=== PATIENT | female | born 1940 | race Caucasian/White ===

== ENCOUNTER 2021-09-01 13:11 | Day surgery (SDC) | payer MEDICARE, OTHER ==
[~2021-09-01 13:11] MED LIST: BUPIVACAINE 0.5% VIAL IJ ONE; CEFAZOLIN 2 GM-D5W BAG** 2 GM/50 ML ML IV ONE; CEFAZOLIN 2 GM-D5W BAG** 2 GM/50 ML ML IV SCH; Lactated Ringers 1,000 ML IV ONE; Lactated Ringers 1,000 ML IV SCH; XYLOCAINE 1% HCL 20 ML MDV ONE
[2021-09-01] MEDS ORDERED: Levaquin 250MG/50ML D5W 250 MG/50 ML BAG IV ONE (13:30)
[2021-09-01] MEDS ORDERED: PHENYLEPHRINE HCL 10 MG in Dextrose 5%/Water IV Soln. 250 ML 250 ML IV PRN (14:37)
[2021-09-01] MEDS ORDERED: Zofran 4 MG/2 ML VIAL ONE (15:36)
[2021-09-01] MEDS ORDERED: Quelicin Fliptop 200 MG/10 ML ONE (15:36)
[2021-09-01] MEDS ORDERED: Amidate 20 MG/10 ML IV ONE (15:36)
[2021-09-01] MEDS ORDERED: Xylocaine-Mpf 2% 5 Ml Vial ONE (15:36)
[2021-09-01] MEDS ORDERED: PHENYLEPHRINE HCL ONE (15:36)
[2021-09-01] MEDS ORDERED: SUBLIMAZE 100 MCG/2 ML ONE ×2 (15:37→18:09)
[2021-09-01] MEDS ORDERED: Pre-Attached Lta Kit TP ONE (15:41)
[2021-09-01] MEDS ORDERED: OFIRMEV 100 ML IV ONE (15:41)
[2021-09-01] MEDS ORDERED: DEXMEDETOMIDINE 80 MCG/20ML-NS IV ONE (17:50)
[2021-09-01 18:46] VITALS: BP 143/67; PULSE 80; O2SAT 98
--- NOTE | 2021-09-02 09:00 | XRAY ---
Indication: Right foot 1st MTP arthrodesis, 2nd metatarsal Keith osteotomy, and hammertoe correction 2nd toe. Intraoperative fluoroscopy provided for 1 minute 6 seconds. 18 digital spot images submitted for interpretation demonstrates fusion 1st MTP with intact plate/screws, 2nd metatarsal Keith osteotomy with intact screw, and 2nd toe fusion with intact screw traversing phalanx. Correlate with intraoperative findings/report.
--- NOTE | 2021-09-02 10:54 | OP ---
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 3) Pain right foot. 4) Hammer toe second digit right foot. 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 3) Pain right foot. 4) Hammer toe second digit right foot. PROCEDURES: 1) First metaphalangeal joint arthrodesis right foot. 2) Hammer toe correction right foot. 3) Keith osteotomy right foot. SURGEON: Miles Cain DPM. CHAIR CANER: None. ANESTHESIA: General plus a postoperative local block. See injectables for details. HEMOSTASIS: Ankle tourniquet set to 250 mm of Mercury for 60 minutes total tourniquet time. ESTIMATED BLOOD LOSS: Less than 10 cc. MATERIALS: A.L.P.S. first metaphalangeal joint plate right with a 3.4 x 34 MAX variable compression screw. Material Keith osteotomy 2.0 x 12 mm partially threaded cannulated screw and for proximal interphalangeal arthrodesis 2.5 x 30 MAX VPC screw. 3-0 Nylon, 4-0 Monocryl. INJECTABLES: 20 cc of 1:1 mixture of 1% lidocaine plain and 0.5% bupivacaine plain injected in a Tapia block and second ray block to the right foot postoperatively. INDICATIONS FOR PROCEDURE: Tamela is a very pleasant 81-year-old female who presented to my office for complaints of pain to the right foot secondary to her thickened lesion between her big toe and second toe, this is secondary to her bunion deformity as well as a significant hammer toe. The patient had multiple places of pain to the second digit where there was a visible contracture at the metatarsophalangeal joint that was dorsiflexory and plantarflexory at the proximal at the proximal interphalangeal joint and particular amount of pain and irritation at the distal tip of the toe as well as the dorsal aspect of the proximal interphalangeal joint. The patient had failed conservative management with use of wider toe box, splinting, bracing and mediation with replacing shoe gear. She understands all risks, benefits and complications of the surgical intervention at this time including but not limited to nonwound healing, delayed wound healing, nonbone healing and delayed bone healing, possibility of infection, hematoma and seroma is a possibility with these kinds of cases. She understands all of these risks and wishes to proceed with surgical intervention at this time. No guarantees were provided as to the outcome and plenty of time was allowed for the patients questions to be answered to her apparent satisfaction. It is with that we decided to proceed. DESCRIPTION OF PROCEDURE AND FINDINGS: The patient was brought into the OR and placed on the OR table in supine position. At this time adequate general anesthesia was administered and the patient was sedated. At this time, the patient was then prepped and draped in the typical sterile fashion. A well-padded ankle tourniquet was applied prior to the prep and the right lower extremity was lowered onto the surgical field. At this time, a linear incision was made approximately 4 cm in length along the medial aspect of the extensor tendon down the first metatarsophalangeal joint. The tendon was dissected out and retracted out of the way. This was deepened down to the level of the capsule where a capsulotomy was performed. Medial and lateral J-strokes were then performed and the cartilage was then inspected. At this time, significant amount of osteochondral degeneration of the first metatarsophalangeal joint was identified. Following this, a K-wire was retrograded down the central aspect of the first metaphalangeal joint of the right foot and a cup and conical reamer were utilized to denude the cartilage down to the subchondral plate to both sides. A copious amount of sterile saline was utilized to flush this site of any remaining cartilage. A 2.0 mm drill was then used to fenestrate the broader surfaces for vascular angle. At this time the position was identified under fluoroscopic guidance and a dorsal first metatarsophalangeal plate A.L.P.S. Joselyn plate was applied to the dorsal aspect of the foot and a temporary fixation was achieved, this was checked under fluoroscopy and deemed to be in adequate position. A combination of locking and nonlocking screws were utilized to fixate the plate over the dorsal aspect of the first metaphalangeal joint with the position correcting for the transverse plane and the frontal plane deviation of the digit. At this time a MAX VPC screw 34 mm in length was introduced from a distal medial to a proximal orientation gaining compression through the plate through multiple sites appeared to be eccentric and the interfrag screw, this was checked under fluoroscopic guidance and deemed to be in adequate position. At this time, the incision was made over the dorsal aspect of the second metatarsal, this incision was deepened identifying the extensor tendon which a Z-lengthening tenoplasty was performed this was then deepened down to the second metatarsophalangeal joint. The second metatarsal was identified and a capsulotomy was performed. A Keith was performed with the blade of the sagittal saw parallel to the weight bearing surface once the complete osteotomy was made, temporary fixation was made and posterior pressure was applied to the digit in order to displace the metatarsal head posteriorly. At this time a 12 mm partially threaded headed cannulated screw was introduced from dorsal to plantar checked under fluoroscopic guidance and deemed to be adequate. The dorsal head of the first metatarsal was rongeured off and the tendon was then repaired. At this time, the incision was deepened along the proximal interphalangeal joint where J-stroke was performed here as well exposing the proximal interphalangeal joint head. Following this, a sagittal saw was utilized to set the head of the proximal phalangeal head as well as base of the middle phalanx. At this time, copious amounts of sterile saline were utilized to flush out the site. A K-wire was retrograded down the distal tip of the second proximal interphalangeal joint, the middle phalanx, distal phalanx and then retrograded through the proximal phalanx. At this time, a 30 x 2.5 mm variable compression screw was introduced from the distal tip and was checked under fluoroscopy and deemed to be adequate. At this time all incision sites were flushed with copious amounts of sterile saline. The incisions were coapted utilizing a combination of 4-0 Monocryl in deep buried fashion and 3-0 Nylon in horizontal mattress-type fashion. The patient was then reversed from anesthesia. Tourniquet was let down at a total tourniquet time of 60 minutes. The patient handled the procedure as well as the anesthesia without significant complication. The patient's orders are as indicated in the patient's outpatient discharge chart.
--- NOTE | 2021-09-02 12:26 | XRAY ---
1 minute 6 seconds of fluoroscopy was used in surgery for a right foot 1st MTP arthrodesis, 2nd metatarsal Keith osteotomy, and hammertoe correction of the 2nd toe.
== END 2021-09-01 19:10 | disposition home or self-care (01) ==
LOC: SDC 13:11
PROVIDERS: ATTEND Podiatrist Foot & Ankle Surgery
DX: M20.11 Hallux valgus (acquired), right foot (principal); M19.071 Primary osteoarthritis, right ankle and foot; M79.671 Pain in right foot; M20.41 Other hammer toe(s) (acquired), right foot
CPT/HCPCS: 73630; 76000; J0330; J0690; J1956; J2370; J2405; J3010

== ENCOUNTER 2021-09-03 08:45 | Emergency (ER) | payer MEDICARE, OTHER ==
--- NOTE | 2021-09-03 09:11 | ERPHSYRPT ---
- History of Present Illness Source: patient, EMS Exam Limitations: no limitations Patient Subjective Stated Complaint: pt here for pain to right knee today, she had surgery on right foot tuesday for hammer toe, Triage Nursing Assessment: pt arrived per ambulance , alert, moaning, resp easy, face mask in place, has walking boot to right leg, and dayna bandage dressing to r ight foot, she denies any pain to right foot Physician History: 81 yo wf s/p R hammer toe/bunionectomy [address] Aquino presents w R knee/R calf pain per ambulance. Pt was given 100mcg IV Fentanyl/4mg IV Morphine/4mg IV Zofran in route. She states that her R knee is "swelling" but denies injury. Chest pain/dyspnea are denied. Method of Injury: other (Post-op pain) Occurred: other (2 days ago) Quality: constant, aching Severity of Pain-Max: severe Severity of Pain-Current: severe Lower Extremities Pain: leg: right, knee: right Modifying Factors: Improves With: nothing, movement Associated Symptoms: none Allergies/Adverse Reactions: cefuroxime [From Ceftin] Allergy (Verified 09/03/21 08:56) clindamycin [From Cleocin] Allergy (Verified 09/03/21 08:56) hydrocodone Allergy (Verified 09/03/21 08:56) ibuprofen Allergy (Verified 09/03/21 08:56) iodine Allergy (Verified 09/03/21 08:56) naproxen Allergy (Verified 09/03/21 08:56) rofecoxib [From Vioxx] Allergy (Verified 09/03/21 08:56) tramadol [From Ultram] Allergy (Verified 09/03/21 08:56) Home Medications: Acetaminophen [Tylenol Extra Strength] 500 mg PO Q4-6HPRN PRN 08/20/21 [History] Calcium Carbonate [Calcium] 600 mg PO DAILY 08/20/21 [History] Carboxymethylcellulos/Glycerin [Refresh Optive Eye Drops] 5 ml OP BID 08/20/21 [History] Cholecalciferol (Vitamin D3) [Vitamin D3] 10,000 unit PO DAILY 08/20/21 [History] Cranberry 500 mg PO DAILY 08/20/21 [History] Famotidine [Pepcid] 20 mg PO DAILY PRN 08/20/21 [History] Levothyroxine Sodium 50 Mcg [Synthroid 50 Mcg] 50 mcg PO DAILY 08/20/21 [History] Oxymetazoline HCl [Nasal Erwin] 30 ml NS DAILY PRN 08/20/21 [History] Solifenacin Succinate [Vesicare] 1 tab PO DAILY 08/20/21 [History] Timolol Maleate [Timoptic] 5 ml OP BID 08/20/21 [History] Vit C/E/Cuperic/Zinc/Lutein [Preservision Lutein Softgel] 2 each PO DAILY 08/20/21 [History] Hx Tetanus, Diphtheria Vaccination/Date Given: No Hx Influenza Vaccination/Date Given: Yes Hx Pneumococcal Vaccination/Date Given: Yes Immunizations Up to Date: Yes Travel Risk - International Travel Have you traveled outside of the country in past 3 weeks: No - Coronavirus Screening Are you exhibiting any of the following symptoms?: No Close contact with a COVID-19 positive Pt in past 14-21 Days: No - Vaccine Status Have you recieved a Covid-19 vaccination: Yes [employer] 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 - Review of Systems Constitutional: No Symptoms, Fever Eyes: No Symptoms Ears, Nose, & Throat: No Symptoms Respiratory: No Symptoms Cardiac: No Symptoms Abdominal/Gastrointestinal: No Symptoms Genitourinary Symptoms: No Symptoms Musculoskeletal: No Symptoms, Joint Pain, Joint Swelling Skin: No Symptoms Neurological: No Symptoms Psychological: No Symptoms Endocrine: No Symptoms Hematologic/Lymphatic: No Symptoms Immunological/Allergic: No Symptoms - Past Medical History Pertinent Past Medical History: Yes Neurological History: No Pertinent History ENT History: Glaucoma Cardiac History: No Pertinent History Respiratory History: No Pertinent History Endocrine Medical History: No Pertinent History Musculoskeletal History: Rheumatoid Arthritis GI Medical History: No Pertinent History History: No Pertinent History Psycho-Social History: No Pertinent History Female Reproductive Disorders: No Pertinent History Other Medical History: stimulator in back - Past Surgical History Past Surgical History: Yes Neuro Surgical History: No Pertinent History Cardiac: No Pertinent History Respiratory: No Pertinent History Gastrointestinal: No Pertinent History Genitourinary: No Pertinent History Musculoskeletal: No Pertinent History Female Surgical History: Hysterectomy - Social History Smoking Status: Never smoker Exposure to second hand smoke: No Drug Use: none Patient Lives Alone: No Significant Family History: no pertinent family hx - Nursing Vital Signs Nursing Vital Signs: Initial Vital Signs Pulse Rate 72 09/03/21 09:52 Respiratory Rate 18 09/03/21 09:52 Blood Pressure 158/74 09/03/21 09:52 O2 Sat by Pulse Oximetry 97 09/03/21 09:52 Pain Scale Pain Intensity 5 Hypertensive - Physical Exam General Appearance: no apparent distress (Pt in pain) Eyes, Ears, Nose, Throat Exam: normal ENT inspection, TMs normal, pharynx normal Neck Exam: normal inspection, non-tender, supple, full range of motion, No Brudzinski, No Kernig's, No meningismus, No carotid bruit Cardiovascular/Respiratory Exam: normal breath sounds, regular rate/rhythm, heart sounds normal, no JVD, no respiratory distress Gastrointestinal/Abdominal Exam: non-tender, soft, no organomegaly Back Exam: normal inspection, normal range of motion Hips Exam: bilateral: non-tender, normal inspection, normal range of motion, no evidence of injury Knees Exam: right knee: bone tenderness (Diffuse R knee TTP), swelling (Diffuse R knee edema) Ankle Exam: bilateral ankle: non-tender, normal inspection, normal range of motion, no evidence of injury Foot Exam: right foot: other (R foot w boot on upon arrival/Boot removed and extensive dressing removed/Incisions clean, dry, and intact/No discharge) Neuro/Tendon Exam: normal sensation, normal motor functions, normal tendon functions, responds to pain, no evidence tendon injury, No motor deficit, No sensory deficit Mental Status Exam: alert, oriented x 3, cooperative Skin Exam: normal color, warm, dry - Course Nursing assessment & vital signs reviewed: Yes - Radiology Exams Knee X-ray Interpretation: Discussed w/ radiologist (R knee effusion) - Radiology Ultrasound Exam Venous Lower Extremity Ultrasound: discussed w/radiologist (Neg per Rad/Tech) Ordered Tests: Active Orders 24 hr Category Date Time Status Culture,Obtain .as ordered Care 09/03/21 12:18 Completed KNEE (3 VIEWS) Stat Exams 09/03/21 00:00 Completed VENOUS UNILAT/LIMITED EXTREMIT [US] Stat Exams 09/03/21 09:04 Completed BODY FLUID CELL COUNT Stat Lab 09/03/21 12:45 Completed CBC W DIFF Stat Lab 09/03/21 09:10 Completed CMP Stat Lab 09/03/21 09:10 Completed ESR [Erythrocyte Sedimentation Rate] Stat Lab 09/03/21 09:10 Completed Lactic Acid Stat Lab 09/03/21 09:10 Completed Lactic Acid Stat Lab 09/03/21 11:14 Completed UA W/RFX CULTURE Stat Lab 09/03/21 12:22 Completed Medication Summary Discontinued Medications Generic Name Dose Route Start Last Admin Trade Name Paul PRN Reason Stop Dose Admin Sodium Chloride 1,000 mls @ 999 mls/hr 09/03/21 11:06 09/03/21 11:13 Sodium Chloride 0.9% 1000 Ml IV 09/03/21 12:06 Not Given .Q1H1M STA Ondansetron HCl 4 mg 09/03/21 11:00 09/03/21 11:04 Ondansetron Hcl 4 Mg/2 Ml Vial IV 09/03/21 11:01 4 mg STAT ONE Administration Ondansetron HCl Confirm 09/03/21 11:00 Ondansetron Hcl 4 Mg/2 Ml Vial Administered 09/03/21 11:01 Dose 4 mg .ROUTE .STAnTuTu-MED ONE Lab/Rad Data: Laboratory Result Diagrams 09/03/21 09:10 09/03/21 09:10 Laboratory Results 09/03/21 09/03/21 09/03/21 Range/Units 12:45 12:22 11:14 Specimen Type SYNOVIAL WBC (4.0-10.5) x10^3/uL RBC (4.1-5.4) x10^6/uL Hgb (12.0-16.0) g/dL Hct (35-47) % MCV (78-100) fL MCH (26-32) pg MCHC (32-36) g/dL RDW (11.5-14.0) % Plt Count (150-450) x10^3/uL MPV (7.5-11.0) fL Gran % (36.0-66.0) % Immature Gran % (Auto) (0.00-0.4) % Nucleat RBC Rel Count (0.00-0.1) % Eos # (Auto) (0-0.5) x10^3/uL Immature Gran # (Auto) (0.00-0.03) x10^3u/L Absolute Lymphs (auto) (1.0-4.6) x10^3/uL Absolute Monos (auto) (0.0-1.3) x10^3/uL Absolute Nucleated RBC (0.00-0.01) x10^3u/L Lymphocytes % (24.0-44.0) % Monocytes % (0.0-12.0) % Eosinophils % (0.00-5.0) % Basophils % (0.0-0.4) % Absolute Granulocytes (1.4-6.9) x10^3/uL Basophils # (0-0.4) x10^3/uL ESR (0-20) mm/hr Sodium (137-145) mmol/L Potassium (3.5-5.1) mmol/L Chloride (98-107) mmol/L Carbon Dioxide (22-30) mmol/L Anion Gap (5-15) MEQ/L BUN (7-17) mg/dL Creatinine (0.52-1.04) mg/dL Estimated GFR ML/MIN Glucose (74-106) mg/dL Lactic Acid 1.1 (0.4-2.0) Calcium (8.4-10.2) mg/dL Total Bilirubin (0.2-1.3) mg/dL AST (14-36) U/L ALT (0-35) U/L Alkaline Phosphatase (38-126) U/L Serum Total Protein (6.3-8.2) g/dL Albumin (3.5-5.0) g/dL Urinalys Dipstick Clnc MAIN LAB Urine Color YELLOW (YELLOW) Urine Appearance CLEAR (CLEAR) Urine pH 6.0 (5-6) Ur Specific [place] 1.010 (1.005-1.025) POC Urine Protein Conf NEGATIVE (Negative) Urine Ketones NEGATIVE (NEGATIVE) Urine Nitrite NEGATIVE (NEGATIVE) Urine Bilirubin NEGATIVE (NEGATIVE) Urine Urobilinogen 0.2 (0-1) mg/dL Urine Leukocytes NEGATIVE (NEGATIVE) Urine WBC (Auto) 0-2 (0-5) /HPF Urine RBC (Auto) 0-2 (0-2) /HPF U Epithel Cells (Auto) NONE (FEW) /HPF Urine Bacteria (Auto) NONE (NEGATIVE) /HPF Urine RBC TRACE-INTACT (0-5) Wally/ul Urine Mucus (Auto) SLIGHT (NEGATIVE) /HPF Ur Culture Indicated? NO Urine Glucose NEGATIVE (NEGATIVE) mg/dL Fluid Color YELLOW (COLORLESS) Fluid Clarity CLOUDY A (CLEAR) Fluid WBC (Auto) 32.365 x10^3u/L Fluid RBC (Auto) 0.008 x10^6u/L Fld Polynuclear WBCs % 94.300 % Fl Mononuclear % Auto 5.700 % 09/03/21 09/03/21 09/03/21 Range/Units 09:10 09:10 09:10 Specimen Type WBC (4.0-10.5) x10^3/uL RBC (4.1-5.4) x10^6/uL Hgb (12.0-16.0) g/dL Hct (35-47) % MCV (78-100) fL MCH (26-32) pg MCHC (32-36) g/dL RDW (11.5-14.0) % Plt Count (150-450) x10^3/uL MPV (7.5-11.0) fL Gran % (36.0-66.0) % Immature Gran % (Auto) (0.00-0.4) % Nucleat RBC Rel Count (0.00-0.1) % Eos # (Auto) (0-0.5) x10^3/uL Immature Gran # (Auto) (0.00-0.03) x10^3u/L Absolute Lymphs (auto) (1.0-4.6) x10^3/uL Absolute Monos (auto) (0.0-1.3) x10^3/uL Absolute Nucleated RBC (0.00-0.01) x10^3u/L Lymphocytes % (24.0-44.0) % Monocytes % (0.0-12.0) % Eosinophils % (0.00-5.0) % Basophils % (0.0-0.4) % Absolute Granulocytes (1.4-6.9) x10^3/uL Basophils # (0-0.4) x10^3/uL ESR 52 H (0-20) mm/hr Sodium 129 L (137-145) mmol/L Potassium 3.1 L (3.5-5.1) mmol/L Chloride 96 L (98-107) mmol/L Carbon Dioxide 22 (22-30) mmol/L Anion Gap 14.6 (5-15) MEQ/L BUN 7 (7-17) mg/dL Creatinine 0.61 (0.52-1.04) mg/dL Estimated GFR > 60.0 ML/MIN Glucose 131 H (74-106) mg/dL Lactic Acid 2.3 H (0.4-2.0) Calcium 8.3 L (8.4-10.2) mg/dL Total Bilirubin 1.20 (0.2-1.3) mg/dL AST 24 (14-36) U/L ALT 17 (0-35) U/L Alkaline Phosphatase 51 (38-126) U/L Serum Total Protein 5.9 L (6.3-8.2) g/dL Albumin 3.3 L (3.5-5.0) g/dL Urinalys Dipstick Clnc Urine Color (YELLOW) Urine Appearance (CLEAR) Urine pH (5-6) Ur Specific [place] (1.005-1.025) POC Urine Protein Conf (Negative) Urine Ketones (NEGATIVE) Urine Nitrite (NEGATIVE) Urine Bilirubin (NEGATIVE) Urine Urobilinogen (0-1) mg/dL Urine Leukocytes (NEGATIVE) Urine WBC (Auto) (0-5) /HPF Urine RBC (Auto) (0-2) /HPF U Epithel Cells (Auto) (FEW) /HPF Urine Bacteria (Auto) (NEGATIVE) /HPF Urine RBC (0-5) Wally/ul Urine Mucus (Auto) (NEGATIVE) /HPF Ur Culture Indicated? Urine Glucose (NEGATIVE) mg/dL Fluid Color (COLORLESS) Fluid Clarity (CLEAR) Fluid WBC (Auto) x10^3u/L Fluid RBC (Auto) x10^6u/L Fld Polynuclear WBCs % % Fl Mononuclear % Auto % 09/03/21 Range/Units 09:10 Specimen Type WBC 9.8 (4.0-10.5) x10^3/uL RBC 3.29 L (4.1-5.4) x10^6/uL Hgb 10.6 L (12.0-16.0) g/dL Hct 31.5 L (35-47) % MCV 95.7 (78-100) fL MCH 32.2 H (26-32) pg MCHC 33.7 (32-36) g/dL RDW 13.0 (11.5-14.0) % Plt Count 209 (150-450) x10^3/uL MPV 9.0 (7.5-11.0) fL Gran % 71.4 H (36.0-66.0) % Immature Gran % (Auto) 0.4 (0.00-0.4) % Nucleat RBC Rel Count 0.0 (0.00-0.1) % Eos # (Auto) 0.02 (0-0.5) x10^3/uL Immature Gran # (Auto) 0.04 H (0.00-0.03) x10^3u/L Absolute Lymphs (auto) 1.30 (1.0-4.6) x10^3/uL Absolute Monos (auto) 1.42 H (0.0-1.3) x10^3/uL Absolute Nucleated RBC 0.00 (0.00-0.01) x10^3u/L Lymphocytes % 13.3 L (24.0-44.0) % Monocytes % 14.5 H (0.0-12.0) % Eosinophils % 0.2 (0.00-5.0) % Basophils % 0.2 (0.0-0.4) % Absolute Granulocytes 6.97 H (1.4-6.9) x10^3/uL Basophils # 0.02 (0-0.4) x10^3/uL ESR (0-20) mm/hr Sodium (137-145) mmol/L Potassium (3.5-5.1) mmol/L Chloride (98-107) mmol/L Carbon Dioxide (22-30) mmol/L Anion Gap (5-15) MEQ/L BUN (7-17) mg/dL Creatinine (0.52-1.04) mg/dL Estimated GFR ML/MIN Glucose (74-106) mg/dL Lactic Acid (0.4-2.0) Calcium (8.4-10.2) mg/dL Total Bilirubin (0.2-1.3) mg/dL AST (14-36) U/L ALT (0-35) U/L Alkaline Phosphatase (38-126) U/L Serum Total Protein (6.3-8.2) g/dL Albumin (3.5-5.0) g/dL Urinalys Dipstick Clnc Urine Color (YELLOW) Urine Appearance (CLEAR) Urine pH (5-6) Ur Specific [place] (1.005-1.025) POC Urine Protein Conf (Negative) Urine Ketones (NEGATIVE) Urine Nitrite (NEGATIVE) Urine Bilirubin (NEGATIVE) Urine Urobilinogen (0-1) mg/dL Urine Leukocytes (NEGATIVE) Urine WBC (Auto) (0-5) /HPF Urine RBC (Auto) (0-2) /HPF U Epithel Cells (Auto) (FEW) /HPF Urine Bacteria (Auto) (NEGATIVE) /HPF Urine RBC (0-5) Wally/ul Urine Mucus (Auto) (NEGATIVE) /HPF Ur Culture Indicated? Urine Glucose (NEGATIVE) mg/dL Fluid Color (COLORLESS) Fluid Clarity (CLEAR) Fluid WBC (Auto) x10^3u/L Fluid RBC (Auto) x10^6u/L Fld Polynuclear WBCs % % Fl Mononuclear % Auto % - Progress Progress: improved Progress Note: 09/03/21 14:22 Dr. Aquino saw pt in ER. He thinks that surgical sites look ok and believes that pt's R knee is most likely arthritic in origin. He called in more pain meds for pt and arranged for a wheelchair. She is to see ortho on 09/08/21. Arthrocentesis R knee after informed consent/prepped w betadine/anes 1% Lido wo epi/20ml synovial fluid drained/No comps Synovial fluid 18K WBC count which is most likely inflammatory. 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 09/03/21 23:04 Synovial fluid later reported w 36K WBC count but still considered inflammatory Counseled pt/family regarding: lab results, diagnosis, need for follow-up, rad results - Departure Departure Disposition: Home Clinical Impression: Arthritis of right knee Condition: Stable Critical Care Time: No Referrals: NATALIE RUIZ Jr., MD [Primary Care Provider] - Follow up/PCP as directed Instructions: Osteoarthritis, Knee Pain (DC) Additional Instructions: Dr. Aquino called in pain meds Add Doxycycline to Keflex Follow up with orthopedic clinic on Tuesday Return to ER for increasing pain or temperature greater than 100.5 Prescriptions: Doxycycline Monohydrate 100 mg PO BID #[id number]
[2021-09-03 09:19] LABS: Absolute Neutrophil Ct (ANC) 6.97 x10^3/uL (1.4-6.9); Basophil (Absolute #) 0.02 x10^3/uL (0-0.4); Eosinophil % 0.2 % (0.00-5.0); Eosinophil (Absolute #) 0.02 x10^3/uL (0-0.5); Hematocrit 31.5 % (35-47); Hemoglobin 10.6 g/dL (12.0-16.0); Lymphocytes % 13.3 % (24.0-44.0); Mean Cell Volume 95.7 fL (78-100); Mean Corpuscular Hemoglobin 32.2 pg (26-32); Mean Corpuscular Hgb Concent. 33.7 g/dL (32-36); Monocyte (Absolute #) 1.42 x10^3/uL (0.0-1.3); Monocytes % 14.5 % (0.0-12.0); Neutrophil % 71.4 % (36.0-66.0); Platelet Count 209 x10^3/uL (150-450); Red Blood Count 3.29 x10^6/uL (4.1-5.4); White Blood Count 9.8 x10^3/uL (4.0-10.5)
[2021-09-03 09:29] LABS: ALBUMIN 3.3 g/dL (3.5-5.0); ALKALINE PHOSPHATASE 51 U/L (38-126); ANION GAP 14.6 MEQ/L (5-15); BLOOD UREA NITROGEN 7 mg/dL (7-17); CHLORIDE 96 mmol/L (98-107); Calcium 8.3 mg/dL (8.4-10.2); Carbon Dioxide 22 mmol/L (22-30); Creatinine 1 0.61 mg/dL (0.52-1.04); EST GLOMERULAR FILTRATION RATE > 60.0 ML/MIN; Glucose 131 mg/dL (74-106); Potassium 3.1 mmol/L (3.5-5.1); SGOT/AST 24 U/L (14-36); SGPT/ALT 17 U/L (0-35); SODIUM 129 mmol/L (137-145); Total Protein 5.9 g/dL (6.3-8.2)
--- NOTE | 2021-09-03 10:18 | XRAY ---
Indication: Right leg pain. Two-dimensional sonogram and color Doppler imaging of the major venous vessels of the right leg performed. Comparison: None No thrombus seen in the deep venous vessels of the right leg including greater saphenous vein. Veins demonstrate normal compressibility. Venous waveforms are normal with and without augmentation. Impression: Right leg negative for DVT.
[2021-09-03] MEDS ORDERED: Zofran 4 MG/2 ML VIAL IV ONE (11:00)
[2021-09-03] MEDS ORDERED: Zofran 4 MG/2 ML VIAL ONE (11:00)
[2021-09-03] MEDS ORDERED: Sodium Chloride 0.9% 1000 ML 1,000 ML IV STA (11:06)
--- NOTE | 2021-09-03 11:08 | XRAY ---
Indication: Pain and swelling. Comparison: None 3 view right knee demonstrates mild osteopenia, mild tricompartmental degenerative changes, nonspecific effusion, and moderate scattered vascular calcifications. No other bony, articular, or soft tissue abnormalities.
[2021-09-03 12:59] LABS: Appearance CLEAR (CLEAR); Bilirubin NEGATIVE (NEGATIVE); Dipstick done @ ? MAIN LAB; Glucose NEGATIVE (NEGATIVE); Ketones NEGATIVE (NEGATIVE); Nitrite NEGATIVE (NEGATIVE); Protein,Urine Dip NEGATIVE (Negative); RBC TRACE-INTACT Ery/ul (0-5); Urobilinogen 0.2 mg/dL (0-1)
[2021-09-03 13:03] LABS: Mucus SLIGHT /HPF (NEGATIVE); RBC 0-2 /HPF (0-2); WBC 0-2 /HPF (0-5)
[2021-09-03 13:27] LABS: Urine Cultured Indicated? NO
[2021-09-03 14:56] VITALS: BP 130/66; PULSE 78; O2SAT 97
== END 2021-09-03 14:56 | disposition home or self-care (01) ==
LOC: ED 08:45
DX: M17.11 Unilateral primary osteoarthritis, right knee (principal); M25.561 Pain in right knee; Z79.899 Other long term (current) drug therapy
CPT/HCPCS: 20610; 36415; 73562; 80053; 81015; 83605; 85025; 85652; 87070; 87075; 87205; 89051; 93971; 96374; 99284; J2405